=== PATIENT | female | born 1975 | race Caucasian/White ===

== ENCOUNTER 2017-01-13 05:06 | Observation (INO) ==
[2017-01-08 09:56] LABS: MANUAL DIFF NEEDED? NO
[2017-01-08 09:56] LABS: URINE MICRO REVIEW NEEDED? NO; URINE SOURCE VOIDED
[2017-01-08 10:02] LABS: BASO% 0.5 % (0.0-0.8); EOS# 0.15 X1000 (0.0-0.7); EOS% 2.3 % (0.0-10.0); HEMATOCRIT 43.5 % (37.0-47.0); HEMOGLOBIN 14.1 g/dL (12.0-16.0); IMM GRAN# 0.02 X1000 (0.0-0.04); IMM GRAN% 0.3 % (0.0-0.5); LYMPH# 2.62 X1000 (1.2-3.4); MCH 29.1 PG (27-31); MCHC 32.4 g/dL (33-37); MCV 89.7 FL (81-99); MPV 10.6 FL (7.4-10.4); NEUT% 44.9 % (42.2-75.2); PLT 290 X1000 (130-400); RBC 4.85 XMIL (4.2-5.4)
[2017-01-08 10:03] LABS: BILIRUBIN URINE NEGATIVE (NEGATIVE); BLOOD URINE NEGATIVE (NEGATIVE); COLOR YELLOW; GLUCOSE URINE NEGATIVE (NEGATIVE); LEUKOCYTES URINE NEGATIVE (NEGATIVE); NITRITE URINE NEGATIVE (NEGATIVE); PH URINE 7.5; PROTEIN URINE NEGATIVE (NEGATIVE); SP GRAVITY URINE 1.017; TURBIDITY URINE CLEAR (CLEAR); UROBILINOGEN URINE NORMAL (NORMAL)
[2017-01-08 10:04] LABS: UR EPITHELIAL CELLS <10 /HPF (<10); URINE BACTERIA 1+ /HPF; URINE RBC <10 /HPF (<10); URINE WBC <10 /HPF (<10)
[2017-01-13] MEDS ORDERED: REGLAN ONE (05:31)
[2017-01-13] MEDS ORDERED: PEPCID ONE (05:31)
[2017-01-13] MEDS ORDERED: LR 1,000 ML ONE ×2 (05:31→08:18)
[2017-01-13] MEDS ORDERED: KEFZOL 1 GM/D5W 1 GM/50 ML IVPB ONE (05:31)
[2017-01-13] MEDS ORDERED: XYLOCAINE 1%/EPI 1:100,000 ONE (06:10)
[2017-01-13] MEDS ORDERED: DIPRIVAN 1% ONE (06:17)
[2017-01-13] MEDS ORDERED: XYLOCAINE-MPF 2% ONE (06:17)
[2017-01-13] MEDS ORDERED: DURAMORPH ONE (06:42)
[2017-01-13] MEDS ORDERED: TORADOL ONE ×2 (06:43→06:56)
[2017-01-13] MEDS ORDERED: SODIUM CHLORIDE 0.9% ONE (06:43)
[2017-01-13] MEDS ORDERED: CYKLOKAPRON 1,000 MG/NS 0 MG/0 ML IVPB ONE (06:43)
[2017-01-13] MEDS ORDERED: MARCAINE 0.25% PF ONE (06:43)
[2017-01-13] MEDS ORDERED: EXPAREL 1.3% ONE (06:44)
[2017-01-13] MEDS ORDERED: NEOSPORIN G.U. IRRIGANT ONE (06:44)
[2017-01-13] MEDS ORDERED: VERSED ONE (06:52)
[2017-01-13] MEDS ORDERED: ZOFRAN ONE (06:56)
[2017-01-13] MEDS ORDERED: DECADRON ONE (06:56)
[2017-01-13] MEDS ORDERED: FENTANYL ONE (07:03)
[2017-01-13] MEDS ORDERED: MORPHINE ONE (07:16)
[2017-01-13] MEDS ORDERED: ROBINUL ONE (07:33)
[2017-01-13] MEDS ORDERED: OFIRMEV 1000 MG/ISOTONIC SOLN 1,000 MG/100 ML BOTTLE ONE (07:45)
[2017-01-13 08:10] LABS: URINE MICRO REVIEW NEEDED? NO; URINE SOURCE CATH
[2017-01-13 08:13] LABS: BILIRUBIN URINE NEGATIVE (NEGATIVE); BLOOD URINE NEGATIVE (NEGATIVE); COLOR STRAW; GLUCOSE URINE NEGATIVE (NEGATIVE); LEUKOCYTES URINE NEGATIVE (NEGATIVE); NITRITE URINE NEGATIVE (NEGATIVE); PROTEIN URINE NEGATIVE (NEGATIVE); SP GRAVITY URINE 1.005; TURBIDITY URINE CLEAR (CLEAR); UROBILINOGEN URINE NORMAL (NORMAL)
[2017-01-13 08:15] LABS: UR EPITHELIAL CELLS <10 /HPF (<10); URINE BACTERIA NEGATIVE /HPF; URINE RBC <10 /HPF (<10); URINE WBC <10 /HPF (<10)
[2017-01-13] MEDS ORDERED: MORPHINE PCA ONE (08:19)
[2017-01-13] MEDS: MORPHINE ONE ×3 (08:20→08:37)
[2017-01-13] MEDS ORDERED: NARCAN 0.4 MG in LR 1,000 ML IV PRN (10:07)
[2017-01-13] MEDS ORDERED: NARCAN IV PRN (10:07)
[2017-01-13] MEDS ORDERED: MORPHINE PCA IV PRN (10:07)
[2017-01-13] MEDS ORDERED: ZOFRAN IV PRN (10:07)
[2017-01-13] MEDS: PERIDEX MT SCH ×2 (10:56→20:26)
[2017-01-13] MEDS: LR 1,000 ML IV SCH ×2 (10:57→16:16)
[2017-01-13] MEDS ORDERED: MAALOX PLUS LIQUID PO PRN (17:47)
[2017-01-13] MEDS: PHENERGAN PO PRN (20:25)
[2017-01-13] MEDS: NORCO-10 PO PRN (21:15)
[2017-01-14] MEDS: PHENERGAN PO PRN ×2 (04:48→12:22)
[2017-01-14] MEDS: NORCO-10 PO PRN ×3 (05:18→13:47)
[2017-01-14 06:10] LABS: HEMATOCRIT 40.5 % (37.0-47.0); HEMOGLOBIN 13.2 g/dL (12.0-16.0); MCH 29.1 PG (27-31); MCHC 32.6 g/dL (33-37); MCV 89.4 FL (81-99); RBC 4.53 XMIL (4.2-5.4)
[2017-01-14] MEDS: LR 1,000 ML IV SCH ×2 (06:32→06:33)
[2017-01-14] MEDS ORDERED: SALINE LOCK IV FLUID XX ONE (06:42)
[2017-01-14] MEDS ORDERED: NORCO-10 PO PRN (07:55)
[2017-01-14] MEDS: PERIDEX MT SCH (08:03)
[2017-01-14] MEDS ORDERED: MYLICON PO PRN (08:28)
[2017-01-14 12:21] VITALS: BP 109/58
== END 2017-01-14 13:57 | disposition home or self-care (01) ==
LOC: 4N 05:06 → OR 05:06
PROVIDERS: ADMIT Obstetrics & Gynecology; ATTEND Obstetrics & Gynecology